=== PATIENT | female | born 1985 | race Caucasian/White ===

== ENCOUNTER 2019-10-14 02:20 | Inpatient (IN) | payer MEDICAID ==
[~2019-10-14] VITALS: Ht 170.2 cm; Wt 78.9 kg
[2019-10-14] MEDS ORDERED: ONDANSETRON 2MG/ML, 2ML ONE (02:41)
[2019-10-14] MEDS ORDERED: PANTOPRAZOLE 40 MG IV ONE (02:41)
[2019-10-14] MEDS ORDERED: ONDANSETRON 2MG/ML, 2ML IVPush ONE (03:00)
[2019-10-14] MEDS ORDERED: PANTOPRAZOLE 40 MG IV IVPush ONE (03:00)
[2019-10-14] MEDS ORDERED: SODIUM CHLORIDE FLUSH 10ML SYR IVF ONE (03:00)
[2019-10-14] MEDS ORDERED: SODIUM CHLORIDE 0.9% 1,000ML IVBOLUS ONE ×2 (03:00→21:00)
[2019-10-14 03:07] LABS: ALBUMIN 1.3 g/dL (3.4-5.0); ANION GAP 24 mmol/L (5-15); BILIRUBIN, DIRECT 3.3 mg/dL (0.1-0.2); CALCIUM 7.5 mg/dL (8.5-10.1); CHLORIDE 103 mmol/L (98-107); CREATININE 1.38 mg/dL (0.55-1.02); MEAN CORPUSCULAR HEMOGLOBIN 35.7 pg (27.0-34.8); MEAN CORPUSCULAR HGB CONC 32.9 g/dL (32.4-35.8); MEAN CORPUSCULAR VOLUME 108.4 fL (80-100); MEAN PLATELET VOLUME 8.2 fL (7.4-10.4); PLATELET COUNT 190 x10^3/uL (130-400); RED BLOOD COUNT 1.66 x10^6/uL (3.82-5.3); RED CELL DISTRIBUTION WIDTH 19.8 % (9.6-15.2)
[2019-10-14] MEDS ORDERED: PANTOPRAZOLE 80 MG in SODIUM CHLORIDE 0.9% 100 ML IV SCH (03:12)
[2019-10-14 03:13] LABS: ALKALINE PHOSPHATASE 138 U/L (45-117); BILIRUBIN,INDIRECT 2.2 mg/dL (0.0-2.0); BILIRUBIN,TOTAL 5.5 mg/dL (0.2-1.0); TOTAL PROTEIN 6.6 g/dL (6.4-8.2); TROPONIN I < 0.015 ng/mL (0.000-0.045)
--- NOTE | 2019-10-14 03:15 | NUR ---
Patient BIB [facility] c/o vomiting with blood since and dizziness yesterday around 1100. Patient also experienced a witnessed syncopal episode by EMS. Patient has a hx of ETOH abuse but states she only drinks occasionally for the last year. Denies diarrhea or blood in stool. Patient is anxious. Jaundiced skin and sclera. Respirations even and unlabored.
[2019-10-14 03:21] LABS: BASOPHILS # (AUTO) 0.03 x10^3/uL (0-0.1); BASOPHILS % (AUTO) 0 % (0-1); EOSINOPHILS % (AUTO) 0 % (1-7); LYMPHOCYTES # (AUTO) 1.17 x10^3/uL (1-3.4); LYMPHOCYTES % (AUTO) 9 % (22-44); MD SCAN; MONOCYTES # (AUTO) 0.44 x10^3/uL (0.2-0.8); MONOCYTES % (AUTO) 3 % (2-9); NEUTROPHILS # (AUTO) 11.36 x10^3/uL (1.8-6.8); NEUTROPHILS % (AUTO) 87 % (42-75)
[2019-10-14 03:30] LABS: ALANINE AMINOTRANSFERASE 27 U/L (12-78)
[2019-10-14] MEDS ORDERED: LORazepam 2 MG/ML, 1ML IVPush PRN ×2 (03:30→06:30)
[2019-10-14] MEDS ORDERED: MAGNESIUM SULFATE 1 GM, THIAMINE 100 MG, FOLIC ACID 1 MG, MVI ADULT 10 ML in SODIUM CHL... IV ONE (03:30)
[2019-10-14] MEDS ORDERED: OCTREOTIDE 100MCG/ML, 1ML (0.1MG/ML) IV ONE (03:30)
[2019-10-14] MEDS ORDERED: OCTREOTIDE 500 MCG in SODIUM CHLORIDE 0.9% 99 ML IV SCH (03:30)
[2019-10-14] MEDS ORDERED: LORazepam 2 MG/ML, 1ML ONE (03:45)
[2019-10-14] MEDS ORDERED: LORazepam 2 MG/ML, 1ML IVPush ONE (04:00)
[2019-10-14] MEDS ORDERED: OMNIPAQUE 350 MG/ML, 100ML BOTTLE ONE (04:00)
[2019-10-14] MEDS ORDERED: OCTREOTIDE 100MCG/ML, 1ML (0.1MG/ML) ONE (04:35)
--- NOTE | 2019-10-14 04:59 | NUR ---
LAB SENDING PROTIME SPECIMEN TO [facility] OUR MACHINES WILL NOT READ AT THIS TIME.
[2019-10-14] MEDS ORDERED: CEFTRIAXONE PMX 1GM/50ML 50 ML IV ONE (05:00)
[2019-10-14] MEDS ORDERED: TRANEXAMIC ACID 100 MG/ML, 10ML ONE (05:16)
[2019-10-14] MEDS ORDERED: CEFTRIAXONE PMX 1GM/50ML 50 ML ONE (05:16)
[2019-10-14] MEDS ORDERED: TRANEXAMIC ACID 100 MG/ML, 10ML IVPush ONE (05:30)
[2019-10-14] MEDS ORDERED: ALPR1TAB2 PO (05:36)
--- NOTE | 2019-10-14 05:44 | NUR ---
LOBITO Joaquin MD, in room.
--- NOTE | 2019-10-14 06:12 | NUR ---
Aleksandr, hospitalist , in room.
[2019-10-14] MEDS: PANTOPRAZOLE 80 MG in SODIUM CHLORIDE 0.9% 100 ML IV SCH ×3 (06:25→21:29)
[2019-10-14] MEDS: POTASSIUM CHLORIDE 20 MEQ, MAGNESIUM SULFATE 2 GM, THIAMINE 200 MG, MVI ADULT 10 ML, FO... IV SCH (06:25)
[2019-10-14] MEDS ORDERED: ONDANSETRON 2MG/ML, 2ML IV PRN (06:30)
[2019-10-14] MEDS: OCTREOTIDE 500 MCG in SODIUM CHLORIDE 0.9% 99 ML IV SCH ×3 (06:30→23:52)
[2019-10-14] MEDS ORDERED: POTASSIUM CHLORIDE 40 MEQ in SODIUM CHLORIDE 0.9% 500 ML IV ONE (06:30)
--- NOTE | 2019-10-14 06:32 | NUR ---
Report given to FÁTIMA Mcdermott. Patient to be transferred to room 547.
[2019-10-14] MEDS ORDERED: PHYTONADIONE 10 MG in SODIUM CHLORIDE 0.9% 50 ML IV ONE (07:30)
[2019-10-14] MEDS: CHLORDIAZEPOXIDE 25 MG CAPSULE PO SCH ×4 (07:45→20:58)
[2019-10-14] MEDS ORDERED: SODIUM CHLORIDE 0.9%, 500ML IVBOLUS ONE (09:30)
[2019-10-14] MEDS: MOVIPREP POWDER 1 PREP KIT PO SCH (16:41)
[2019-10-15] MEDS: MOVIPREP POWDER 1 PREP KIT PO SCH (01:58)
[2019-10-15 04:11] VITALS: BP 105/61
[2019-10-15] MEDS: CHLORDIAZEPOXIDE 25 MG CAPSULE PO SCH ×4 (04:39→21:21)
[2019-10-15 04:56] LABS: ALBUMIN 1.4 g/dL (3.4-5.0); ANION GAP 11 mmol/L (5-15); CALCIUM 6.5 mg/dL (8.5-10.1); CHLORIDE 115 mmol/L (98-107)
[2019-10-15 05:00] LABS: ALANINE AMINOTRANSFERASE 41 U/L (12-78); ALKALINE PHOSPHATASE 114 U/L (45-117); BILIRUBIN,TOTAL 4.2 mg/dL (0.2-1.0); TOTAL PROTEIN 6.4 g/dL (6.4-8.2)
[2019-10-15 05:33] LABS: MEAN CORPUSCULAR HEMOGLOBIN 36.8 pg (27.0-34.8); MEAN CORPUSCULAR HGB CONC 32.9 g/dL (32.4-35.8); MEAN CORPUSCULAR VOLUME 111.7 fL (80-100); PLATELET COUNT 107 x10^3/uL (130-400); RED BLOOD COUNT 1.24 x10^6/uL (3.82-5.3); RED CELL DISTRIBUTION WIDTH 22.9 % (9.6-15.2)
[2019-10-15] MEDS: POTASSIUM CHLORIDE 20 MEQ, MAGNESIUM SULFATE 2 GM, THIAMINE 200 MG, MVI ADULT 10 ML, FO... IV SCH (05:55)
[2019-10-15 06:17] LABS: BASOPHILS # (AUTO) 0.02 x10^3/uL (0-0.1); BASOPHILS % (AUTO) 0 % (0-1); EOSINOPHILS # (AUTO) 0.09 x10^3/uL (0-0.4); EOSINOPHILS % (AUTO) 1 % (1-7); LYMPHOCYTES # (AUTO) 2.72 x10^3/uL (1-3.4); LYMPHOCYTES % (AUTO) 22 % (22-44); MD SCAN; MONOCYTES # (AUTO) 0.92 x10^3/uL (0.2-0.8); MONOCYTES % (AUTO) 8 % (2-9); NEUTROPHILS # (AUTO) 8.56 x10^3/uL (1.8-6.8); NEUTROPHILS % (AUTO) 70 % (42-75)
[2019-10-15] MEDS ORDERED: PROPOFOL 100 ML ONE (08:07)
[2019-10-15] MEDS ORDERED: KETAMINE 10 MG/ML, 20ML ONE (08:13)
[2019-10-15] MEDS ORDERED: MAGNESIUM SULFATE 6 GM in SODIUM CHLORIDE 0.9% 100 ML IV ONE (08:30)
[2019-10-15] MEDS ORDERED: LIDOCAINE-MPF 2% ,5ML ONE (08:45)
[2019-10-15] MEDS ORDERED: ACETAMINOPHEN 325 MG TABLET PO PRN (09:00)
[2019-10-15] MEDS ORDERED: PROMETHAZINE 25 MG/ML, 1ML IVPush PRN (09:00)
[2019-10-15] MEDS ORDERED: LORazepam 2 MG/ML, 1ML IVPush PRN (09:00)
[2019-10-15] MEDS ORDERED: OXYcodone 5 MG/5 ML ORAL.SOL UDC PO PRN (09:00)
[2019-10-15] MEDS ORDERED: MIDAZOLAM 1 MG/ML, 2ML IV PRN (09:00)
[2019-10-15] MEDS ORDERED: PROMETHAZINE 25 MG SUPP PR PRN (09:00)
[2019-10-15] MEDS ORDERED: DIAZEPAM 5 MG/ML, 2ML IVPush PRN (09:00)
[2019-10-15] MEDS ORDERED: ONDANSETRON 2MG/ML, 2ML IVPush PRN (09:00)
[2019-10-15] MEDS ORDERED: FENTANYL PF 100 MCG/2ML IV PRN (09:00)
[2019-10-15] MEDS ORDERED: MEPERIDINE/PF 25MG/0.5ML IVPush PRN (09:00)
[2019-10-15] MEDS ORDERED: LORazepam 2 MG/ML, 1ML ONE (09:05)
[2019-10-15] MEDS: CEFTRIAXONE PMX 1GM/50ML 50 ML IV SCH (10:55)
[2019-10-15] MEDS: OCTREOTIDE 500 MCG in SODIUM CHLORIDE 0.9% 99 ML IV SCH ×2 (10:55→21:21)
[2019-10-15] MEDS: POTASSIUM CHLORIDE 20 MEQ TAB.ER.PRT PO SCH ×2 (10:56→16:15)
[2019-10-15] MEDS: MULTIVIT.W/IRON, MINERALS ORAL SOL PO SCH (10:59)
[2019-10-15] MEDS: PHYTONADIONE 10 MG/ML, 1ML SQ SCH (12:19)
[2019-10-15] MEDS: DARBEPOETIN 25 MCG/ML SQ SCH (14:38)
[2019-10-15] MEDS: OMEPRAZOLE 20 MG CAPSULE.DR PO SCH (16:16)
[2019-10-15] MEDS ORDERED: POTASSIUM CHLORIDE 10% 40 MEQ/30 ML UDC PO ONE (16:30)
[2019-10-15 17:20] VITALS: BP 101/66
[2019-10-15 19:15] VITALS: BP 109/66
[2019-10-16 00:15] VITALS: BP 100/60
[2019-10-16 05:15] LABS: ALBUMIN 1.3 g/dL (3.4-5.0); ANION GAP 8 mmol/L (5-15); CALCIUM 6.7 mg/dL (8.5-10.1); CHLORIDE 116 mmol/L (98-107)
[2019-10-16 05:16] LABS: MEAN CORPUSCULAR HGB CONC 33.7 g/dL (32.4-35.8); MEAN CORPUSCULAR VOLUME 112.8 fL (80-100); MEAN PLATELET VOLUME 8.6 fL (7.4-10.4); PLATELET COUNT 114 x10^3/uL (130-400); RED BLOOD COUNT 1.37 x10^6/uL (3.82-5.3); RED CELL DISTRIBUTION WIDTH 21.2 % (9.6-15.2)
[2019-10-16 05:17] LABS: CREATININE 0.65 mg/dL (0.55-1.02)
[2019-10-16 05:18] LABS: ALANINE AMINOTRANSFERASE 50 U/L (12-78); ALKALINE PHOSPHATASE 127 U/L (45-117); BILIRUBIN,TOTAL 3.5 mg/dL (0.2-1.0); TOTAL PROTEIN 6.8 g/dL (6.4-8.2)
[2019-10-16] MEDS: OMEPRAZOLE 20 MG CAPSULE.DR PO SCH ×2 (05:51→16:00)
[2019-10-16] MEDS: POTASSIUM CHLORIDE 20 MEQ, MAGNESIUM SULFATE 2 GM, THIAMINE 200 MG, MVI ADULT 10 ML, FO... IV SCH (05:51)
[2019-10-16] MEDS: CHLORDIAZEPOXIDE 25 MG CAPSULE PO SCH ×4 (05:51→21:00)
[2019-10-16] MEDS: OCTREOTIDE 500 MCG in SODIUM CHLORIDE 0.9% 99 ML IV SCH ×2 (05:51→16:00)
[2019-10-16 05:54] LABS: MD YES
[2019-10-16 05:56] LABS: BAND#(MANUAL) 0.12 x10^3/uL; BANDS%(MANUAL) 1 % (0-7); LYMPHS% (MANUAL) 26 % (22-44); MONOS#(MANUAL) 0.25 x10^3/uL (0.3-2.7); MONOS% (MANUAL) 2 % (2-9); NRBC % (MANUAL) 1 % (0-1); SEG#(MANUAL) 8.73 x10^3/uL (1.8-6.8); SEGS% (MANUAL) 71 % (42-75)
[2019-10-16 05:57] LABS: <PLATELET ESTIMATE> DECREASED; <PLT MORPHOLOGY> NORMAL PLT MORPH; ANISOCYTOSIS 2+; POLYCHROMASIA 1+; ROULEAUX 1+
[2019-10-16 05:59] LABS: SPHEROCYTES 1+
[2019-10-16 06:41] VITALS: BP 112/69
[2019-10-16] MEDS: PHYTONADIONE 10 MG/ML, 1ML SQ SCH (09:41)
[2019-10-16] MEDS: MULTIVIT.W/IRON, MINERALS ORAL SOL PO SCH (09:41)
[2019-10-16] MEDS: CEFTRIAXONE PMX 1GM/50ML 50 ML IV SCH (11:37)
[2019-10-16 12:59] VITALS: BP 111/75
[2019-10-16 21:11] VITALS: BP 104/63
[2019-10-16 21:41] LABS: MICROSCOPIC INDICATED
[2019-10-16 21:48] LABS: AMPHETAMINE SCREEN, URINE Negative (Negative); BARBITURATE SCREEN, URINE Negative (Negative); BENZODIAZEPINE SCREEN, URINE Positive (Negative); CANNABINOID SCREEN, URINE Negative (Negative); COCAINE SCREEN, URINE Negative (Negative); METHADONE SCREEN, URINE Negative (Negative); OPIATE SCREEN, URINE Negative (Negative)
[2019-10-16] MEDS: LORazepam 2 MG/ML, 1ML IVPush PRN (23:42)
[2019-10-17] VITALS (8 sets, daily range): BP systolic 84–111; BP diastolic 54–72
[2019-10-17] MEDS: OCTREOTIDE 500 MCG in SODIUM CHLORIDE 0.9% 99 ML IV SCH ×2 (04:19→15:18)
[2019-10-17] MEDS: LORazepam 2 MG/ML, 1ML IVPush PRN ×2 (04:44→20:04)
[2019-10-17 04:53] LABS: ANION GAP 8 mmol/L (5-15); CALCIUM 6.5 mg/dL (8.5-10.1); CHLORIDE 112 mmol/L (98-107); CREATININE 0.59 mg/dL (0.55-1.02)
[2019-10-17 05:28] LABS: MD YES; MEAN CORPUSCULAR HEMOGLOBIN 38.9 pg (27.0-34.8); MEAN CORPUSCULAR HGB CONC 33.9 g/dL (32.4-35.8); MEAN CORPUSCULAR VOLUME 114.9 fL (80-100); MEAN PLATELET VOLUME 8.6 fL (7.4-10.4); PLATELET COUNT 137 x10^3/uL (130-400); RED BLOOD COUNT 1.16 x10^6/uL (3.82-5.3); RED CELL DISTRIBUTION WIDTH 21.3 % (9.6-15.2)
[2019-10-17 05:30] LABS: LYMPHS% (MANUAL) 12 % (22-44); MONOS#(MANUAL) 0.97 x10^3/uL (0.3-2.7); MONOS% (MANUAL) 9 % (2-9); SEG#(MANUAL) 8.53 x10^3/uL (1.8-6.8); SEGS% (MANUAL) 79 % (42-75)
[2019-10-17 05:32] LABS: ANISOCYTOSIS 2+; POLYCHROMASIA 1+
[2019-10-17 05:33] LABS: SPHEROCYTES 1+
[2019-10-17 05:34] LABS: <PLATELET ESTIMATE> DECREASED; <PLT MORPHOLOGY> NORMAL PLT MORPH
[2019-10-17] MEDS: POTASSIUM CHLORIDE 20 MEQ, MAGNESIUM SULFATE 2 GM, THIAMINE 200 MG, MVI ADULT 10 ML, FO... IV SCH (08:26)
[2019-10-17] MEDS: OMEPRAZOLE 20 MG CAPSULE.DR PO SCH ×2 (08:27→15:58)
[2019-10-17] MEDS: PHYTONADIONE 10 MG/ML, 1ML SQ SCH (08:27)
[2019-10-17] MEDS: MULTIVIT.W/IRON, MINERALS ORAL SOL PO SCH ×2 (08:27→23:33)
[2019-10-17] MEDS: CEFTRIAXONE PMX 1GM/50ML 50 ML IV SCH (11:28)
[2019-10-17] MEDS: LACTULOSE 20 GM/30 ML UDC PO SCH (21:00)
[2019-10-18] MEDS: OCTREOTIDE 500 MCG in SODIUM CHLORIDE 0.9% 99 ML IV SCH ×3 (01:23→21:56)
[2019-10-18] MEDS: OMEPRAZOLE 20 MG CAPSULE.DR PO SCH ×2 (05:05→16:05)
[2019-10-18 05:21] LABS: ANION GAP 7 mmol/L (5-15); CALCIUM 7.1 mg/dL (8.5-10.1); CHLORIDE 112 mmol/L (98-107)
[2019-10-18 05:26] LABS: % IRON SATURATION 25 % (20-55); CREATININE 0.64 mg/dL (0.55-1.02); IRON LEVEL 23 mcg/dL (50-170); TOTAL IRON BINDING CAPACITY 92 mcg/dL (250-450)
[2019-10-18 05:47] LABS: INTERNATIONAL NORMALIZED RATIO 1.83 (0.93-1.1); PROTHROMBIN TIME 19.5 Seconds (9.6-11.5)
[2019-10-18 06:07] LABS: MEAN CORPUSCULAR HEMOGLOBIN 38.2 pg (27.0-34.8); MEAN CORPUSCULAR HGB CONC 33.1 g/dL (32.4-35.8); MEAN CORPUSCULAR VOLUME 115.3 fL (80-100); MEAN PLATELET VOLUME 8.2 fL (7.4-10.4); PLATELET COUNT 158 x10^3/uL (130-400); RED BLOOD COUNT 1.31 x10^6/uL (3.82-5.3); RED CELL DISTRIBUTION WIDTH 21.2 % (9.6-15.2)
[2019-10-18 06:11] LABS: BASOPHILS # (AUTO) 0.05 x10^3/uL (0-0.1); BASOPHILS % (AUTO) 1 % (0-1); EOSINOPHILS # (AUTO) 0.22 x10^3/uL (0-0.4); EOSINOPHILS % (AUTO) 3 % (1-7); LYMPHOCYTES # (AUTO) 1.61 x10^3/uL (1-3.4); LYMPHOCYTES % (AUTO) 23 % (22-44); MD MORPH REVIEW ONLY; MONOCYTES # (AUTO) 0.89 x10^3/uL (0.2-0.8); MONOCYTES % (AUTO) 13 % (2-9); NEUTROPHILS # (AUTO) 4.36 x10^3/uL (1.8-6.8); NEUTROPHILS % (AUTO) 61 % (42-75)
[2019-10-18 06:12] LABS: ANISOCYTOSIS 2+; POLYCHROMASIA 1+
[2019-10-18 06:13] LABS: <PLATELET ESTIMATE> ADEQUATE; <PLT MORPHOLOGY> NORMAL PLT MORPH
[2019-10-18 06:41] VITALS: BP 112/69
[2019-10-18] MEDS: LACTULOSE 20 GM/30 ML UDC PO SCH ×2 (09:16→21:57)
[2019-10-18] MEDS: MULTIVIT.W/IRON, MINERALS ORAL SOL PO SCH ×2 (09:16→21:57)
[2019-10-18] MEDS: POTASSIUM CHLORIDE 20 MEQ, MAGNESIUM SULFATE 2 GM, THIAMINE 200 MG, MVI ADULT 10 ML, FO... IV SCH (10:20)
[2019-10-18] MEDS: CEFTRIAXONE PMX 1GM/50ML 50 ML IV SCH (11:07)
[2019-10-18] MEDS: CHOLECALCIFEROL 5,000u TAB PO SCH (12:00)
[2019-10-18 12:28] VITALS: BP 108/69
[2019-10-18 19:23] VITALS: BP 112/62
[2019-10-19 02:00] VITALS: BP 119/68
[2019-10-19 05:18] LABS: MEAN CORPUSCULAR HEMOGLOBIN 36.5 pg (27.0-34.8); MEAN CORPUSCULAR HGB CONC 32.1 g/dL (32.4-35.8); MEAN CORPUSCULAR VOLUME 113.5 fL (80-100); PLATELET COUNT 192 x10^3/uL (130-400); RED BLOOD COUNT 1.48 x10^6/uL (3.82-5.3)
[2019-10-19 05:23] LABS: ALBUMIN 1.4 g/dL (3.4-5.0); ANION GAP 6 mmol/L (5-15); CALCIUM 7.1 mg/dL (8.5-10.1); CHLORIDE 113 mmol/L (98-107)
[2019-10-19 05:26] LABS: ALANINE AMINOTRANSFERASE 33 U/L (12-78); ALKALINE PHOSPHATASE 132 U/L (45-117); BILIRUBIN,TOTAL 3.2 mg/dL (0.2-1.0); CREATININE 0.66 mg/dL (0.55-1.02); TOTAL PROTEIN 6.5 g/dL (6.4-8.2)
[2019-10-19] MEDS: OMEPRAZOLE 20 MG CAPSULE.DR PO SCH ×2 (05:41→16:46)
[2019-10-19 06:02] LABS: BASOPHILS # (AUTO) 0.04 x10^3/uL (0-0.1); BASOPHILS % (AUTO) 1 % (0-1); EOSINOPHILS # (AUTO) 0.23 x10^3/uL (0-0.4); EOSINOPHILS % (AUTO) 4 % (1-7); LYMPHOCYTES # (AUTO) 1.32 x10^3/uL (1-3.4); LYMPHOCYTES % (AUTO) 22 % (22-44); MD SCAN; MONOCYTES # (AUTO) 0.75 x10^3/uL (0.2-0.8); MONOCYTES % (AUTO) 12 % (2-9); NEUTROPHILS # (AUTO) 3.76 x10^3/uL (1.8-6.8); NEUTROPHILS % (AUTO) 62 % (42-75)
[2019-10-19 06:27] LABS: INTERNATIONAL NORMALIZED RATIO 1.91 (0.93-1.1); PROTHROMBIN TIME 20.4 Seconds (9.6-11.5)
[2019-10-19 06:57] VITALS: BP 127/83
[2019-10-19] MEDS: CHOLECALCIFEROL 5,000u TAB PO SCH (08:29)
[2019-10-19] MEDS: MULTIVIT.W/IRON, MINERALS ORAL SOL PO SCH ×2 (08:30→20:51)
[2019-10-19] MEDS: POTASSIUM CHLORIDE 20 MEQ, MAGNESIUM SULFATE 2 GM, THIAMINE 200 MG, MVI ADULT 10 ML, FO... IV SCH (08:30)
[2019-10-19] MEDS: LACTULOSE 20 GM/30 ML UDC PO SCH ×2 (08:30→20:51)
[2019-10-19] MEDS: OCTREOTIDE 500 MCG in SODIUM CHLORIDE 0.9% 99 ML IV SCH ×2 (08:34→18:16)
[2019-10-19] MEDS: CEFTRIAXONE PMX 1GM/50ML 50 ML IV SCH (11:05)
[2019-10-19] MEDS ORDERED: CALCIUM GLUCONATE 0.46MEQ/1ML IVPush ONE (13:00)
[2019-10-19] MEDS ORDERED: POTASSIUM CHLORIDE 40 MEQ in SODIUM CHLORIDE 0.9% 500 ML IV ONE (13:00)
[2019-10-19 13:26] VITALS: BP 111/70
[2019-10-19] MEDS ORDERED: CALCIUM GLUCONATE 4.6 MEQ in SODIUM CHLORIDE 0.9% 100 ML IV ONE (14:00)
[2019-10-19 19:41] VITALS: BP 110/72
[2019-10-20 01:15] VITALS: BP 105/65
[2019-10-20] MEDS: OCTREOTIDE 500 MCG in SODIUM CHLORIDE 0.9% 99 ML IV SCH (05:07)
[2019-10-20] MEDS: OMEPRAZOLE 20 MG CAPSULE.DR PO SCH ×2 (05:27→17:30)
[2019-10-20 06:31] LABS: MEAN CORPUSCULAR HEMOGLOBIN 37.2 pg (27.0-34.8); MEAN CORPUSCULAR HGB CONC 32.6 g/dL (32.4-35.8); MEAN CORPUSCULAR VOLUME 114.1 fL (80-100); MEAN PLATELET VOLUME 8.2 fL (7.4-10.4); PLATELET COUNT 238 x10^3/uL (130-400); RED CELL DISTRIBUTION WIDTH 18.4 % (9.6-15.2)
[2019-10-20 06:36] LABS: ALANINE AMINOTRANSFERASE 28 U/L (12-78); ALBUMIN 1.3 g/dL (3.4-5.0); ANION GAP 9 mmol/L (5-15); CHLORIDE 111 mmol/L (98-107); CREATININE 0.63 mg/dL (0.55-1.02)
[2019-10-20 06:38] LABS: ALKALINE PHOSPHATASE 127 U/L (45-117); BILIRUBIN,TOTAL 2.7 mg/dL (0.2-1.0); TOTAL PROTEIN 6.4 g/dL (6.4-8.2)
[2019-10-20 06:53] LABS: MD YES
[2019-10-20 06:55] LABS: LYMPH#(MANUAL) 1.41 x10^3/uL (1-3.4); LYMPHS% (MANUAL) 21 % (22-44); MONOS% (MANUAL) 12 % (2-9); SEG#(MANUAL) 4.09 x10^3/uL (1.8-6.8); SEGS% (MANUAL) 61 % (42-75)
[2019-10-20 07:02] LABS: BASOS#(MANUAL) 0.13 x10^3/uL (0-0.1); BASOS% (MANUAL) 2 % (0-1); EOS#(MANUAL) 0.27 x10^3/uL (0.0-0.4); EOS% (MANUAL) 4 % (1-7)
[2019-10-20 07:03] LABS: ANISOCYTOSIS 1+; CRENATED 1+; POLYCHROMASIA 1+
[2019-10-20 07:04] LABS: <PLATELET ESTIMATE> ADEQUATE; <PLT MORPHOLOGY> NORMAL PLT MORPH; HYPOCHROMIA 1+
[2019-10-20 07:55] VITALS: BP 114/73
[2019-10-20] MEDS: POTASSIUM CHLORIDE 20 MEQ, MAGNESIUM SULFATE 2 GM, THIAMINE 200 MG, MVI ADULT 10 ML, FO... IV SCH (08:58)
[2019-10-20] MEDS: MULTIVIT.W/IRON, MINERALS ORAL SOL PO SCH ×2 (08:58→20:41)
[2019-10-20] MEDS: CHOLECALCIFEROL 5,000u TAB PO SCH (08:58)
[2019-10-20] MEDS: LACTULOSE 20 GM/30 ML UDC PO SCH ×2 (08:58→20:41)
[2019-10-20] MEDS: CEFTRIAXONE PMX 1GM/50ML 50 ML IV SCH (11:43)
[2019-10-20 13:37] VITALS: BP 129/83
[2019-10-20] MEDS ORDERED: POTASSIUM CHLORIDE 40 MEQ in SODIUM CHLORIDE 0.9% 500 ML IV ONE (14:30)
[2019-10-20 19:02] VITALS: BP 121/81
[2019-10-21 01:35] VITALS: BP 120/82
[2019-10-21] MEDS: OMEPRAZOLE 20 MG CAPSULE.DR PO SCH ×2 (05:33→17:18)
[2019-10-21 05:48] LABS: MEAN CORPUSCULAR HEMOGLOBIN 35.3 pg (27.0-34.8); MEAN CORPUSCULAR HGB CONC 31.4 g/dL (32.4-35.8); MEAN CORPUSCULAR VOLUME 112.6 fL (80-100); MEAN PLATELET VOLUME 8.2 fL (7.4-10.4); PLATELET COUNT 250 x10^3/uL (130-400); RED BLOOD COUNT 1.69 x10^6/uL (3.82-5.3); RED CELL DISTRIBUTION WIDTH 17.6 % (9.6-15.2)
[2019-10-21 05:56] LABS: ANION GAP 7 mmol/L (5-15); CALCIUM 7.1 mg/dL (8.5-10.1); CHLORIDE 113 mmol/L (98-107); CREATININE 0.57 mg/dL (0.55-1.02)
[2019-10-21 06:02] LABS: MD YES
[2019-10-21 06:04] LABS: BAND#(MANUAL) 0.33 x10^3/uL; BANDS%(MANUAL) 4 % (0-7); EOS#(MANUAL) 0.17 x10^3/uL (0.0-0.4); EOS% (MANUAL) 2 % (1-7); LYMPH#(MANUAL) 0.91 x10^3/uL (1-3.4); LYMPHS% (MANUAL) 11 % (22-44); METAMYELOCYTES# (MANUAL) 0.08 x10^3/uL (0-0); METAMYELOCYTES% (MANUAL) 1 % (0-1); MONOS#(MANUAL) 1.25 x10^3/uL (0.3-2.7); MONOS% (MANUAL) 15 % (2-9); SEG#(MANUAL) 5.56 x10^3/uL (1.8-6.8); SEGS% (MANUAL) 67 % (42-75)
[2019-10-21 06:08] LABS: ANISOCYTOSIS 1+; CRENATED 1+; HYPOCHROMIA 1+; POLYCHROMASIA 1+
[2019-10-21 06:09] LABS: <PLATELET ESTIMATE> ADEQUATE; <PLT MORPHOLOGY> NORMAL PLT MORPH; TEAR DROPS 1+
[2019-10-21 07:07] VITALS: BP 103/67
[2019-10-21] MEDS: POTASSIUM CHLORIDE 20 MEQ, MAGNESIUM SULFATE 2 GM, THIAMINE 200 MG, MVI ADULT 10 ML, FO... IV SCH (10:24)
[2019-10-21] MEDS: LACTULOSE 20 GM/30 ML UDC PO SCH ×2 (10:25→20:55)
[2019-10-21] MEDS: MULTIVIT.W/IRON, MINERALS ORAL SOL PO SCH ×2 (10:25→20:55)
[2019-10-21] MEDS: CHOLECALCIFEROL 5,000u TAB PO SCH (10:26)
[2019-10-21 12:40] VITALS: BP_SYST 115; BP_SYST 117; BP_DIAS 77
[2019-10-21] MEDS: CEFTRIAXONE PMX 1GM/50ML 50 ML IV SCH (12:40)
[2019-10-21] MEDS: SPIRONOLACTONE 100 MG TABLET PO SCH (12:44)
[2019-10-21] MEDS: FUROSEMIDE 40 MG TABLET PO SCH (12:44)
[2019-10-21 20:18] VITALS: BP 117/78
[2019-10-22 00:01] VITALS: BP 110/74
[2019-10-22 05:22] LABS: MEAN CORPUSCULAR HEMOGLOBIN 35.1 pg (27.0-34.8); MEAN CORPUSCULAR HGB CONC 31.8 g/dL (32.4-35.8); MEAN CORPUSCULAR VOLUME 110.5 fL (80-100); MEAN PLATELET VOLUME 8.4 fL (7.4-10.4); PLATELET COUNT 262 x10^3/uL (130-400); RED BLOOD COUNT 1.63 x10^6/uL (3.82-5.3); RED CELL DISTRIBUTION WIDTH 17.7 % (9.6-15.2)
[2019-10-22 05:29] LABS: CHLORIDE 110 mmol/L (98-107)
[2019-10-22] MEDS: OMEPRAZOLE 20 MG CAPSULE.DR PO SCH ×2 (05:34→16:05)
[2019-10-22 05:36] LABS: ALANINE AMINOTRANSFERASE 21 U/L (12-78); ALBUMIN 1.1 g/dL (3.4-5.0); ALKALINE PHOSPHATASE 126 U/L (45-117); ANION GAP 10 mmol/L (5-15); BILIRUBIN,TOTAL 1.9 mg/dL (0.2-1.0); CALCIUM 7.1 mg/dL (8.5-10.1); CREATININE 0.51 mg/dL (0.55-1.02); TOTAL PROTEIN 6.1 g/dL (6.4-8.2)
[2019-10-22 06:19] LABS: BASOPHILS # (AUTO) 0.11 x10^3/uL (0-0.1); BASOPHILS % (AUTO) 1 % (0-1); EOSINOPHILS # (AUTO) 0.24 x10^3/uL (0-0.4); EOSINOPHILS % (AUTO) 3 % (1-7); LYMPHOCYTES % (AUTO) 16 % (22-44); MD SCAN; MONOCYTES # (AUTO) 1.13 x10^3/uL (0.2-0.8); MONOCYTES % (AUTO) 14 % (2-9); NEUTROPHILS # (AUTO) 5.12 x10^3/uL (1.8-6.8); NEUTROPHILS % (AUTO) 65 % (42-75)
[2019-10-22 07:33] VITALS: BP 109/73
[2019-10-22] MEDS: CHOLECALCIFEROL 5,000u TAB PO SCH (09:13)
[2019-10-22] MEDS: SPIRONOLACTONE 100 MG TABLET PO SCH (09:13)
[2019-10-22] MEDS: LACTULOSE 20 GM/30 ML UDC PO SCH ×2 (09:14→21:36)
[2019-10-22] MEDS: FUROSEMIDE 40 MG TABLET PO SCH (09:14)
[2019-10-22] MEDS: MULTIVIT.W/IRON, MINERALS ORAL SOL PO SCH ×2 (09:14→21:36)
[2019-10-22] MEDS: DARBEPOETIN 25 MCG/ML SQ SCH (11:00)
[2019-10-22] MEDS: CEFTRIAXONE PMX 1GM/50ML 50 ML IV SCH (11:26)
[2019-10-22] MEDS ORDERED: SPIR100T PO (11:46)
[2019-10-22] MEDS ORDERED: OMEP-110 PO (11:46)
[2019-10-22] MEDS ORDERED: FURO40TA6 PO (11:46)
[2019-10-22] MEDS ORDERED: CHOL500045 PO (11:46)
[2019-10-22] MEDS ORDERED: MULT9LIQ10 PO (11:46)
[2019-10-22] MEDS ORDERED: DARB25VI SQ (11:46)
[2019-10-22] MEDS ORDERED: LACT20SO13 PO (11:46)
[2019-10-22 13:41] VITALS: BP 110/75
[2019-10-22 19:16] VITALS: BP 113/75
[2019-10-23 01:24] VITALS: BP 112/74
[2019-10-23] MEDS: OMEPRAZOLE 20 MG CAPSULE.DR PO SCH (06:30)
[2019-10-23 07:52] VITALS: BP 105/69
[2019-10-23] MEDS: SPIRONOLACTONE 100 MG TABLET PO SCH (08:42)
[2019-10-23] MEDS: FUROSEMIDE 40 MG TABLET PO SCH (08:42)
[2019-10-23] MEDS: CHOLECALCIFEROL 5,000u TAB PO SCH (08:42)
[2019-10-23] MEDS: LACTULOSE 20 GM/30 ML UDC PO SCH (08:42)
[2019-10-23] MEDS: MULTIVIT.W/IRON, MINERALS ORAL SOL PO SCH (08:48)
[2019-10-23] MEDS: CEFTRIAXONE PMX 1GM/50ML 50 ML IV SCH (11:00)
== END 2019-10-23 12:06 | disposition home or self-care (01) | DRG 432 ==
LOC: ED 05:19 → EDIP 06:04 → CCU 06:41 → 4EST 10-15 17:03 → DCLOUNGE 10-23 11:47
PROVIDERS: ADMIT Family Medicine; ATTEND Hospitalist
PROC: 06L38CZ Occlusion of Esophageal Vein with Extraluminal Device, Via Natural or Artificial Opening Endoscopic (ICD-10-PCS; 2019-10-15)
PROC: 0DJD8ZZ Inspection of Lower Intestinal Tract, Via Natural or Artificial Opening Endoscopic (ICD-10-PCS; principal; 2019-10-15 09:00)
DX: K70.31 Alcoholic cirrhosis of liver with ascites (principal); E43 Unspecified severe protein-calorie malnutrition; I85.11 Secondary esophageal varices with bleeding; N17.0 Acute kidney failure with tubular necrosis; D62 Acute posthemorrhagic anemia; D68.9 Coagulation defect, unspecified; F10.239 Alcohol dependence with withdrawal, unspecified; K76.6 Portal hypertension; E83.51 Hypocalcemia; F41.9 Anxiety disorder, unspecified; K21.9 Gastro-esophageal reflux disease without esophagitis; K29.80 Duodenitis without bleeding; K31.89 Other diseases of stomach and duodenum; K52.9 Noninfective gastroenteritis and colitis, unspecified; K64.8 Other hemorrhoids; K70.11 Alcoholic hepatitis with ascites; M79.7 Fibromyalgia; Z68.27 Body mass index [BMI] 27.0-27.9, adult; D75.89 Other specified diseases of blood and blood-forming organs; E87.6 Hypokalemia
CPT/HCPCS: 36415; 84591; 87106; 96374; 99291; 99292; J3490; J7042; 74174; 80048; 80053; 80307; 81001; 82107; 82140; 82180; 82247; 82248; 82306; 82330; 82607; 82728; 82962; 83540; 83550; 83605; 83690; 83735; 83970; 84100; 84207; 84252; 84425; 84443; 84484; 84590; 84630; 84703; 85025; 85610; 85730; 86850; 86900; 86923; 87081; 87086; 93005; G0378; J0610; J0696; J0881; J2354; J2704; J3411; J3430; J3475; J3480; Q9967; C9113; J2060; J7030; J7040